=== PATIENT | female | born 1970 | race Hispanic/Latino ===

== ENCOUNTER 2018-04-14 12:50 | Emergency (ER) | payer MEDICAID ==
[2018-04-14] MEDS ORDERED: PEPCID IV ONE (13:17)
[2018-04-14] MEDS ORDERED: TORADOL IV ONE (13:17)
[2018-04-14] MEDS ORDERED: NACL 0.9% 1000 ML 1,000 ML IV ONE (13:17)
[2018-04-14] MEDS ORDERED: REGLAN IV ONE (13:18)
--- NOTE | 2018-04-14 13:21 | Emergency Department Report ---
ED Abdominal Pain HPI - General Chief Complaint: Abdominal Pain Stated Complaint: ABD/BODY PAIN Time Seen by Provider: 04/14/18 13:14 Source: patient Mode of arrival: Ambulatory Limitations: No Limitations - History of Present Illness Initial Comments: Patient is a 47-year-old female who has past medical history of ulcers and H. pylori who is presenting with 2 days of generalized abdominal pain with nausea vomiting and hematochezia. Patient states that she's had diarrhea and now has noticed some bright red blood per rectum. Patient states it is not only with wiping was also filled the toilet. Patient denies any coffee-ground emesis at this time. Patient states that she has been having a lot of GI issues since her son a year ago she developed ulcers from stress. The patient denies any cough, congestion and fevers chills at this time. Patient states the pain is diffuse but mostly in the epigastrium and suprapubic region and is crampy and burning in nature. Patient denies any dysuria or abnormal vaginal bleeding or discharge. - Related Data Previous Rx's Medication Instructions Recorded Last Taken Type Ciprofloxacin HCl [Cipro] 500 mg PO BID #28 tablet 04/14/18 Unknown Rx Hyoscyamine Subl [Levsin Sl 0.125 0.125 mg SL Q4HR PRN #20 tablet 04/14/18 Unknown Rx TAB] Metoclopramide [Reglan] 10 mg PO TID #20 tab 04/14/18 Unknown Rx metroNIDAZOLE [Flagyl] 500 mg PO Q12HR #28 tab 04/14/18 Unknown Rx Allergies Allergy/AdvReac Type Severity Reaction Status Date / Time codeine Allergy Unknown Verified 04/14/18 13:04 ondansetron [From Zofran] Allergy Unknown Unverified 04/14/18 19:43 Penicillins Allergy Unknown Verified 04/14/18 13:04 ED Review of Systems ROS: Stated complaint: ABD/BODY PAIN Other details as noted in HPI Comment: All other systems reviewed and negative ED Past Medical Hx - Past Medical History Additional medical history: H-Pylori - Surgical History Additional Surgical History: left hip,hysterectomy - Social History Smoking Status: Never Smoker Substance Use Type: None - Medications Home Medications: Home Medications Medication Instructions Recorded Confirmed Last Taken Type Ciprofloxacin HCl [Cipro] 500 mg PO BID #28 tablet 04/14/18 Unknown Rx Hyoscyamine Subl [Levsin Sl 0.125 0.125 mg SL Q4HR PRN #20 tablet 04/14/18 Unknown Rx TAB] Metoclopramide [Reglan] 10 mg PO TID #20 tab 04/14/18 Unknown Rx metroNIDAZOLE [Flagyl] 500 mg PO Q12HR #28 tab 04/14/18 Unknown Rx ED Physical Exam - General Limitations: No Limitations General appearance: alert, in no apparent distress - Head Head exam: Present: atraumatic, normocephalic - Eye Eye exam: Present: normal appearance - ENT ENT exam: Present: mucous membranes moist - Neck Neck exam: Present: normal inspection - Respiratory Respiratory exam: Present: normal lung sounds bilaterally. Absent: respiratory distress, wheezes, rales, rhonchi - Cardiovascular Cardiovascular Exam: Present: regular rate, normal rhythm, normal heart sounds. Absent: systolic murmur, diastolic murmur, rubs, gallop - GI/Abdominal GI/Abdominal exam: Present: soft, tenderness, normal bowel sounds. Absent: distended, guarding, rebound, rigid - Extremities Exam Extremities exam: Present: normal inspection - Back Exam Back exam: Present: normal inspection - Neurological Exam Neurological exam: Present: alert, oriented X3 - Psychiatric Psychiatric exam: Present: normal affect, normal mood - Skin Skin exam: Present: warm, dry, intact, normal color. Absent: rash ED Course Vital Signs 04/14/18 04/14/18 04/14/18 12:56 13:54 19:12 Temperature 98.3 F 98.2 F Pulse Rate 70 58 L Respiratory 18 18 20 Rate Blood Pressure 135/76 Blood Pressure 132/78 [Right] O2 Sat by Pulse 100 96 Oximetry ED Medical Decision Making - Lab Data Result diagrams: 04/14/18 13:27 04/14/18 13:27 Critical care attestation.: If time is entered above; I have spent that time in minutes in the direct care of this critically ill patient, excluding procedure time. ED Disposition Clinical Impression: Abdominal pain, Colitis Disposition: TO HOME OR SELFCARE Is pt being admited?: Yes Condition: Stable Instructions: Abdominal Pain (ED) Prescriptions: Ciprofloxacin HCl [Cipro] 500 mg PO BID #28 tablet Hyoscyamine Subl [Levsin Sl 0.125 TAB] 0.125 mg SL Q4HR PRN #20 tablet PRN Reason: Spasms Metoclopramide [Reglan] 10 mg PO TID #20 tab metroNIDAZOLE [Flagyl] 500 mg PO Q12HR #28 tab Referrals: [facility] [Provider Group] - 3-5 Days [facility] [Primary Care Provider] - 3-5 Days
[2018-04-14 13:40] LABS: Basophils # (Auto) 0.1 K/mm3 (0.0-0.1); Basophils % (Auto) 0.8 % (0.0-1.8); Eosinophils # (Auto) 0.2 K/mm3 (0.0-0.4); Eosinophils % (Auto) 2.9 % (0.0-4.3); Hematocrit 43.5 % (30.3-42.9); Hemoglobin 14.3 gm/dl (10.1-14.3); Lymphocytes # (Auto) 2.5 K/mm3 (1.2-5.4); Lymphocytes % (Auto) 37.8 % (13.4-35.0); Mean Corpuscular HGB Conc 33 % (30-34); Mean Corpuscular Volume 87 fl (79-97); Monocytes # (Auto) 0.4 K/mm3 (0.0-0.8); Monocytes % (Auto) 5.9 % (0.0-7.3); Platelet Count 318 K/mm3 (140-440); Red Blood Count 5.02 M/mm3 (3.65-5.03); Red Cell Distribution Width 14.4 % (13.2-15.2)
[2018-04-14 13:56] LABS: Alanine Aminotransferase 11 units/L (7-56); Albumin 4.5 g/dL (3.9-5); BUN/Creatinine Ratio 18; Blood Urea Nitrogen 11 mg/dL (7-17); Calcium 9.4 mg/dL (8.4-10.2); Hemolysis Index 4
[2018-04-14 14:03] LABS: Bilirubin,Urine NEG (Negative); Blood,Urine NEG (Negative); Color,Urine Straw (Yellow); Protein,Urine <15 mg/dL mg/dL (Negative); Urobilinogen,Urine < 2.0 mg/dL (<2.0); WBC,Urine < 1.0 /HPF (0.0-6.0)
--- NOTE | 2018-04-14 17:00 | Cat Scan Report ---
FINAL REPORT EXAM: CT ABDOMEN PELVIS W CON HISTORY: GI bleeding COMPARISON: None available. TECHNIQUE: Contiguous axial images were obtained. Additional sagittal and coronal reformatted images were obtained. Administration of IV contrast given per institution protocol. Images submitted for in terpretation. 100 cc Omnipaque [id number]. FINDINGS: Visualized lung bases are clear. No calcified gallstones or biliary dilatation. Liver, spleen, pancre as and adrenal glands are grossly unremarkable. Punctate nonobstructive left renal calculi. No solid renal lesion. No hydronephrosis. Aorta and IVC normal in caliber. Normal opacification aorta and its major arterial branches. Urinary bladder is unremarkable. Uterus is surgically absent. Multiple pelvic phleboliths. Right ovar y may remain. The left ovary is not visualized. Mild fat stranding at the hysterectomy site. No bowel obstruction. No free air pneumatosis. The appendix is normal in caliber. Mild wall thickenin g of the descending colon and rectosigmoid colon accentuated by decompressed state. Mild segmental co litis not excluded given the patient's clinical symptoms. No active extravasation of IV contrast. Lumbar vertebral body heights are preserved. Bony pelvis is grossly intact. Prominent benign appearin g cystic changes left femoral head and left acetabular rim. Some of this may relate to fibrous dyspla montse. IMPRESSION: Mild wall thickening of the left colon accentuated by decompressed state. Mild segmental colitis not excluded given the patient's history. No active extravasation of contrast into the bowel lumen. No dmitry wel obstruction, free air, or pneumatosis. The appendix is normal in caliber. Punctate nonobstructive renal calculi. No hydronephrosis.
[2018-04-14] MEDS ORDERED: ZOFRAN ONE (18:34)
--- NOTE | 2018-04-14 18:47 | Emergency Department Report ---
Blank Doc - Documentation Documentation: 47-year-old female results. CT scan shows what might be a mild colitis. No p erforations are no obstructive processes. No obstructive renal uropathies as well. Plan as is will move 4 with antimicrobials. Treatment and follow-up gastro-enterology 04 for the evaluation and treatment recommendations and to ensure that the symptoms have improved. Currently alert and oriented 3. No acute distress. Abdomen abdominal pain Mild no active vomiting
[2018-04-14 19:13] VITALS: BP 132/78
[2018-04-14] MEDS ORDERED: BENADRYL PO ONE (19:24)
[2018-04-14] MEDS ORDERED: BENTYL PO ONE (20:23)
== END 2018-04-14 20:52 | disposition home or self-care (01) ==
LOC: ED 12:50
DX: R10.13 Epigastric pain (principal); R11.2 Nausea with vomiting, unspecified; Z90.710 Acquired absence of both cervix and uterus
CPT/HCPCS: 36415; 74177; 80053; 81001; 84703; 85025; 96361; 96374; 96375; 99284; J1885; J2405; J2765; J7030; Q9967